=== PATIENT | female | born 1990 | race African-American/Black ===

== ENCOUNTER 2024-05-31 23:39 | Emergency (ER) | payer SELFPAY ==
[~2024-05-31] VITALS: Ht 172.7 cm; Wt 64.0 kg
[2024-05-31 23:45] VITALS: BP 112/71; PULSE 70; RESP 18; TEMP 98.2; O2SAT 100
[2024-06-01] MEDS: LORAZEPAM 0.5MG TABLET PO ONE (01:59)
== END 2024-06-01 02:21 | disposition home or self-care (01) ==
LOC: ER 23:58
DX: F41.0 Panic disorder [episodic paroxysmal anxiety] (principal); F41.9 Anxiety disorder, unspecified; K21.9 Gastro-esophageal reflux disease without esophagitis
CPT/HCPCS: 99283

== ENCOUNTER 2025-03-15 00:14 | Emergency (ER) | payer OTHER ==
[~2025-03-15] VITALS: Ht 177.8 cm; Wt 62.0 kg
[2025-03-15 00:19] VITALS: O2SAT 100
[2025-03-15 02:35] VITALS: BP 121/81; PULSE 80; RESP 20; TEMP 36.9; O2SAT 100
== END 2025-03-15 02:35 | disposition home or self-care (01) ==
LOC: ER 00:14
DX: F12.929 Cannabis use, unspecified with intoxication, unspecified (principal); Z86.39 Personal history of other endocrine, nutritional and metabolic disease
CPT/HCPCS: 99283